=== PATIENT | female | born 1995 ===

== ENCOUNTER 2018-10-09 01:27 | Emergency (ER) | payer SELFPAY ==
[2018-10-09 01:42] VITALS: O2SAT 100
[2018-10-09] MEDS ORDERED: Sodium Chloride 0.9% 500 ML IV ONE (02:06)
--- NOTE | 2018-10-09 03:03 | C.PDOC ---
History Of Present Illness 23 year old female with PMHx of migraine presents to the ED c/o exacerbation of migraine headache that started few hours [employer]. Patient states she usually uses Imitrex to prevent her migraine headache, however patient reports she recently ran out. Patient states her headache is frontal associated with photophobia and nausea. Patient denies fever, chills, nausea, vomit, dizziness, CP, SOB, weakness, numbness. Time Seen by Provider: 10/09/18 01:47 Chief Complaint (Nursing): Headache History Per: Patient History/Exam Limitations: no limitations Onset/Duration Of Symptoms: Hrs Current Symptoms Are (Timing): Still Present Quality: "Pain" Preceeding Symptoms: Known Migraine Symptoms Associated Symptoms: Photophobia, Nausea, Vomiting Recent travel outside of the [place]: No Additional History Per: Patient Past Medical History Reviewed: Historical Data, Nursing Documentation, Vital Signs Vital Signs: Last Vital Signs Temp 97.8 F 10/09/18 01:37 Pulse 77 10/09/18 01:37 Resp 16 10/09/18 01:37 BP 107/70 10/09/18 01:37 Pulse Ox 100 10/09/18 01:37 - Medical History PMH: Migraine Surgical History: No Surg Hx Family History: States: Unknown Family Hx - Social History Hx Alcohol Use: Yes Hx Substance Use: No - Immunization History Hx Influenza Vaccination: No Hx Pneumococcal Vaccination: No Review Of Systems Constitutional: Negative for: Fever, Chills Eyes: Negative for: Vision Change Cardiovascular: Negative for: Chest Pain Respiratory: Negative for: Shortness of Breath Gastrointestinal: Negative for: Nausea, Vomiting, Abdominal Pain Skin: Negative for: Rash Neurological: Positive for: Headache. Negative for: Weakness, Numbness, Dizziness Physical Exam - Physical Exam Appears: Non-toxic, No Acute Distress Skin: Normal Color, Warm, Dry Head: Atraumatic, Normacephalic Eye(s): bilateral: Normal Inspection, PERRL, EOMI Neck: Normal ROM, No Midline Cervical Tenderness, Supple Chest: Symmetrical Cardiovascular: Rhythm Regular Respiratory: Normal Breath Sounds, No Rales, No Rhonchi, No Wheezing Gastrointestinal/Abdominal: Soft, No Tenderness Extremity: Normal ROM, No Tenderness, No Swelling Neurological/Psych: Oriented x3, Normal Speech, Normal Cognition, Normal Motor, Normal Sensation Gait: Steady ED Course And Treatment O2 Sat by Pulse Oximetry: 100 (ON RA) Pulse Ox Interpretation: Normal Progress Note: Plan: - Toradol 30 mg IVP. - Reglan 10 mg IVP. - IV fluids. Patient was actively vomiting while in the ED. Patient reports improvement after medications were given, no longer vomiting, states headache improved. Patient given refill for medication util she can follow up with PMD. Disposition Counseled Patient/Family Regarding: Diagnosis, Need For Followup, Rx Given - Disposition Disposition: HOME/ ROUTINE Disposition Time: 03:20 Condition: STABLE Additional Instructions: Please follow up with PMD Continue current migraine medication as directed Return to ER if worse Prescriptions: SUMAtriptan succinate [Imitrex Tab] 100 mg PO ONCE #20 tab Instructions: Migraine Headache (DC) Forms: [employer] (Sami) - Clinical Impression Clinical Impression: Migraine, Headache - PA / [employer] / Resident Statement MD/DO has reviewed & agrees with the documentation as recorded. - Scribe Statement The provider has reviewed the documentation as recorded by the Scribe Obed Guevara All medical record entries made by the Scribe were at my direction and personally dictated by me. I have reviewed the chart and agree that the record accurately reflects my personal performance of the history, physical exam, medical decision making, and the department course for this patient. I have also personally directed, reviewed, and agree with the discharge instructions and disposition.
[2018-10-09 03:23] VITALS: BP 98/59; PULSE 84; RESP 18; TEMP 99.1
== END 2018-10-09 03:39 | disposition home or self-care (01) ==
LOC: C.ER 01:27
DX: G43.909 Migraine, unspecified, not intractable, without status migrainosus (principal)
CPT/HCPCS: 81025; 96361; 96374; 96375; 99284; J1885; J2765; J7040